=== PATIENT | male | born 1955 | race Caucasian/White ===

== ENCOUNTER 2019-05-30 15:04 | Outpatient (CLI) | payer OTHER ==
--- NOTE | 2019-05-30 15:41 | RAD ---
LUMBAR SPINE 2 VIEWS: Date: 05/30/19 HISTORY: Low back pain. Disability exam. FINDINGS: Multilevel degenerative changes are seen. No fracture, subluxation, or bony destruction is noted. IMPRESSION: Lumbar spondylosis. POS: JEFF
--- NOTE | 2019-05-30 15:42 | RAD ---
LEFT HIP 2 VIEWS: Date: 05/30/19 HISTORY: Disability exam. Left hip pain. FINDINGS/IMPRESSION: Degenerative changes are present. No fracture, dislocation, or bony destruction seen. POS: JEFF
== END 2019-05-30 15:05 | disposition home or self-care (01) ==
LOC: BICRAD 15:04
PROVIDERS: ATTEND Internal Medicine
DX: Z02.71 Encounter for disability determination (principal); M16.12 Unilateral primary osteoarthritis, left hip; M47.816 Spondylosis without myelopathy or radiculopathy, lumbar region
CPT/HCPCS: 72100